=== PATIENT | male | born 1965 | race Caucasian/White ===

== ENCOUNTER 2022-05-31 18:20 | Emergency (ER) | payer MEDICARE ==
[~2022-05-31] VITALS: Ht 167.6 cm; Wt 111.1 kg
[~2022-05-31 18:20] MED LIST: PRAMIPEXOLE PO; TRAMADOL HCL50 MG; Z POTASSIUM CHLOR PO; Z WELLBUTRIN PO; Z.0.ALAVERT10 MG PO; Z.0.BACLOFEN20 MG PO; Z.0.COMBIVENT INH14. IH; Z.0.HYDROCHLOROTHIA2 PO; Z.0.METOPROLOL SUCC2 PO; Z.0.OMEPRAZOLE20 M1 PO; Z.0.SINGULAIR10 MG PO; Z.0.TYLENOL # 31 EA PO; [UNRECOGNIZED DRUG - OTHER] PO; [UNRECOGNIZED DRUG - OTHER] PO
[2022-05-31] MEDS ORDERED: BENZTROPINE MESY1 MG PO (19:12)
[2022-05-31 19:30] VITALS: BP 126/86
== END 2022-05-31 19:25 | disposition home or self-care (01) ==
LOC: ER 18:24
DX: G25.71 Drug induced akathisia (principal); T43.595A Adverse effect of other antipsychotics and neuroleptics, initial encounter; I10 Essential (primary) hypertension; F41.9 Anxiety disorder, unspecified; F32.A Depression, unspecified; F43.10 Post-traumatic stress disorder, unspecified; G25.81 Restless legs syndrome
CPT/HCPCS: 99284